=== PATIENT | male | born 1995 | race Caucasian/White ===

== ENCOUNTER 2020-06-11 20:57 | Emergency (ER) | payer SELFPAY ==
[2020-06-11] MEDS ORDERED: NORMAL SALINE 1000 ML 1,000 ML IV ONE (21:02)
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
[2020-06-11] MEDS ORDERED: DIPH/PERTUSS(ACELL)/TETANUS VAC/PF 0.5 ML SYR (>=10YO) IM ONE (21:10)
[2020-06-11] MEDS ORDERED: MORPHINE SULFATE 10 MG/ML INJ IV ONE ×2 (21:10→21:46)
[2020-06-11 21:25] LABS: ABSOLUTE BASOPHILS # (AUTO) 0.2 10^3/uL (0.0-0.2); ABSOLUTE EOSINOPHILS # (AUTO) 1.4 10^3/uL (0.0-0.6); ABSOLUTE LYMPHOCYTES (AUTO) 4.2 10^3/uL (0.5-4.7); ABSOLUTE MONOCYTES (AUTO) 1.4 10^3/uL (0.1-1.4); ABSOLUTE NEUT (AUTO) 6.4 10^3/uL (1.7-8.2); BASOPHILS % (AUTO) 1.3 % (0-2); EOSINOPHILS % (AUTO) 10.3 % (0-6); HEMOGLOBIN 14.5 g/dL (13.5-17.0); LYMPHOCYTES % (AUTO) 30.9 % (13-45); MEAN CORPUSCULAR HEMOGLOBIN 28.9 pg (27.0-33.4); MEAN CORPUSCULAR HGB CONC 34.7 g/dL (32.0-36.0); MEAN CORPUSCULAR VOLUME 83 fl (80-97); MONOCYTES % (AUTO) 10.5 % (3-13); PLATELET COUNT 314 10^3/uL (150-450); RED BLOOD COUNT 5.03 10^6/uL (4.35-5.55); RED CELL DISTRIBUTION WIDTH 13.2 % (11.5-14.0); TOTAL CELLS COUNTED % (AUTO) 100 %; WHITE BLOOD COUNT 13.5 10^3/uL (4.0-10.5)
[2020-06-11 21:29] LABS: INTERNATIONAL RATION (INR) 1.02; PROTHROMBIN TIME 13.6 SEC (11.4-15.4)
[2020-06-11 21:42] LABS: ALBUMIN 4.4 g/dL (3.5-5.0); ALKALINE PHOSPHATASE 58 U/L (38-126); ANION GAP 9 (5-19); ASPARTATE AMINO TRANSFERASE 22 U/L (17-59); BILIRUBIN,DIRECT 0.1 mg/dL (0.0-0.4); BILIRUBIN,TOTAL 0.5 mg/dL (0.2-1.3); BLOOD UREA NITROGEN 17 mg/dL (7-20); CALCIUM 9.7 mg/dL (8.4-10.2); CARBON DIOXIDE 29 mmol/L (22-30); CHLORIDE 101 mmol/L (98-107); GLUCOSE 108 mg/dL (75-110); POTASSIUM 3.7 mmol/L (3.6-5.0); TOTAL PROTEIN 7.3 g/dL (6.3-8.2)
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
[2020-06-11] MEDS ORDERED: ACETAMINOPHEN 1,000 MG/100 ML RTUPB IV ONE (22:15)
[2020-06-11] MEDS ORDERED: BUPIVACAINE HCL 0.75% INJ/PF (7.5 MG/1 ML) 10 ML SDV INJ ONE (22:48)
[2020-06-11] MEDS ORDERED: LIDOCAINE 1% INJ (10 MG/ML) 10 ML MDV INJ ONE (22:48)
[2020-06-11] MEDS ORDERED: CEPHALEXIN 500 MG CAPSULE PO ONE (22:48)
[2020-06-11] MEDS ORDERED: IBUPROFEN 600 MG TABLET PO ONE (22:49)
[2020-06-11] MEDS ORDERED: LIDOCAINE 1% INJ-PF (10 MG/ML) 30 ML SDV INJ ONE (23:31)
[2020-06-12] MEDS ORDERED: HYDROCODONE/ACETAMINOPHEN 5-325 MG (6 TAB/ER DISP) PO PRN (02:10)
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
[2020-06-12 02:55] VITALS: BP 130/65
== END 2020-06-12 02:50 | disposition home or self-care (01) ==
LOC: ER 20:57
DX: S62.643B Nondisplaced fracture of proximal phalanx of left middle finger, initial encounter for open fracture (principal); W34.00XA Accidental discharge from unspecified firearms or gun, initial encounter; Y93.89 Activity, other specified; Y92.009 Unspecified place in unspecified non-institutional (private) residence as the place of occurrence of the external cause; F17.200 Nicotine dependence, unspecified, uncomplicated; Z23 Encounter for immunization
CPT/HCPCS: 96376; 99284; 96361; 90471; 96375; 96365; 86900; 86901; 36415; 86850; 85025; 85610; 85730; 80053; 73130; 90715; 12002; J3490; J2270; J7030; J0131

== ENCOUNTER 2020-07-02 06:38 | Emergency (ER) | payer SELFPAY ==
--- NOTE | 2020-07-02 09:35 | ER Document Report ---
HPI - HPI Time Seen by Provider: 07/02/20 08:50 Pain Level: Denies Context: Patient is a 24-year-old male presents emergency department with 2 complaints. His first complaint is that he has a rash to his entire body from poison srinivas. 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 States that he has had it for the past few days. Patient also has a finger fracture to his left third finger with stitches in them. This happened 3 weeks ago and he has not had his stitches removed, nor has he followed up with orthopedics. He denies any fever, body aches, or chills. - CONSTITUTIONAL Constitutional: DENIES: Fever, Chills Past Medical History - General Information source: Patient - Social History Smoking Status: Current Every Day Smoker Family History: Reviewed & Not Pertinent Past Surgical History: Reports: Hx Orthopedic Surgery Vertical Provider Document - CONSTITUTIONAL Agree With Documented VS: Yes Exam Limitations: No Limitations General Appearance: No Apparent Distress - HEENT HEENT: Atraumatic, Normocephalic, PERRLA - CARDIOVASCULAR Cardiovascular: Regular Rate, Regular Rhythm Pulses: Normal: Radial - MUSCULOSKELETAL/EXTREMETIES Musculoskeletal/Extremeties: Tender - Left third digit, No Edema. negative: FROM - Decreased to left third digit from fracture - NEURO Level of Consciousness: Awake, Alert, Appropriate Motor/Sensory: No Motor Deficit, No Sensory Deficit - DERM Integumentary: Warm, Dry, Rash - Consistent with poison srinivas exposure and dermatitis to face, forearms Course - Re-evaluation Re-evalutation: 07/02/20 09:30 I was able to take out the sutures from 3 weeks ago with no difficulty. We will also treat the patient's rash with prednisone taper. I will refer the patient out to multiple orthopedic doctors, as the patient states that he is "unable to reach the doctor's office" that he was referred to. I have a low suspicion for any life-threatening etiology at this time. Patient appears well. Follow-up precautions were given. Verbal discharge instructions were given to the patient. They verbalized understanding. They are stable for discharge. - Vital Signs Vital signs: Temp Pulse Resp BP Pulse Ox 98.1 F 57 L 16 114/61 100 07/02/20 06:55 07/02/20 06:55 07/02/20 06:55 07/02/20 06:55 07/02/20 06:55 - Laboratory Results Critical Laboratory Results Reviewed: No Critical Results - Radiology Results Critical Radiology Results Reviewed: No Critical Results Procedures - Additional Procedures suture removal Time performed: 09:35 Additional Procedures: Dressing Change, Other - 7 sutures removed Discharge - Discharge Clinical Impression: Visit for suture removal, Rash, Contact dermatitis due to poison srinivas Condition: Stable Disposition: HOME, SELF-CARE Instructions: Corticosteroid Medication ([facility]), Use of Diphenhydramine Additional Instructions: You must follow-up with an orthopedic surgeon in regards to this visit. Your being seen today for poison srinivas. Please take the steroid taper as directed. Return for any difficulty breathing, vomiting, passing out, or any other symptoms that are worrisome to you. Steroid taper should be taken as follows: Days 1-4: 60mg PO daily Days 5-9: 40mg PO daily Days 10-13: 20mg PO daily Days 14-20: 10mg PO daily Prescriptions: Prednisone [Deltasone 20 mg Tablet] 20 tab PO ASDIR 5 Days #25 tablet Referrals: KATHARINA ALEJANDRO DO [ACTIVE STAFF] - Follow up as needed [facility] [Provider Group] - Follow up as needed ACOSTA ARIZA JR, DO [ACTIVE PROVISIONAL STAFF] - Follow up as needed HAJA HUNTER MD [ACTIVE STAFF] - Follow up as needed
[2020-07-02 09:50] VITALS: BP 123/69
== END 2020-07-02 09:50 | disposition home or self-care (01) ==
LOC: ER 06:38
DX: L23.7 Allergic contact dermatitis due to plants, except food (principal); Z48.02 Encounter for removal of sutures; F17.200 Nicotine dependence, unspecified, uncomplicated
CPT/HCPCS: 99283